=== PATIENT | male | born 1940 | race African-American/Black ===

== ENCOUNTER 2025-02-13 09:52 | Emergency (ER) | payer OTHER ==
--- NOTE | 2025-02-13 13:08 | RAD REPORT ---
EXAM:Lower Extremity Artery [facility] HISTORY: Diminished pulses right lower extremity TECHNIQUE: Sonographic evaluation right lower extremity arteries performed.Grayscale, color and spect ral analysis performed on all vessels COMPARISON: None. FINDINGS: Right common femoral, right superficial femoral and right popliteal arterial waveforms biphasic. Posterior tibial waveform is biphasic Right dorsalis pedis arterial waveform triphasic. No high-grade stenosis/occlusion Relatively mild plaque is present throughout the arteries. IMPRESSION: No significant vascular abnormality displayed
--- NOTE | 2025-02-13 13:17 | EDPHYS ---
Physician Documentation [facility] Name: Wilmer Yeboah Age: 84 yrs Sex: Male : 1940 Arrival Date: 02/13/2025 Time: 09:52 Bed [id number] Private MD: ED Physician Giorgio Corona HPI: 02/13 10:26 This 84 yrs old Black Male presents to ER via Unassigned with complaints of faint pulse ms3 right foot. 10:26 84-year-old male presents emergency department via [facility] without complaints. EMS ms3 states they were called by patient's caseworker intake for a faint pulse in his right foot. They note the pulse has been faint since his previous hospitalization. Patient was recently discharged from the hospital. Patient denies pain, fevers, chills, nausea, vomiting. 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 - Infectious Disease History:: Denies. - Social history:: Smoking status: unknown. ROS: 10:26 Constitutional: Negative for fever, and chills. Cardiovascular: Negative for chest ms3 pain, and palpitations. Respiratory: Negative for shortness of breath, cough, wheezing, and pleuritic chest pain, Abdomen/GI: Negative for abdominal pain, nausea, vomiting, diarrhea, and constipation, Skin: Negative for injury, rash, and discoloration, Exam: 10:26 Constitutional: This is a well developed, well nourished patient who is awake, alert, ms3 and in no acute distress. Cardiovascular: Regular rate and rhythm with a normal S1 and S2. No gallops, murmurs, or rubs. Normal PMI, no JVD. No pulse deficits. Respiratory: Lungs have equal breath sounds bilaterally, clear to auscultation and percussion. No rales, rhonchi or wheezes noted. No increased work of breathing, no retractions or nasal flaring. Abdomen/GI: Soft, non-tender, with normal bowel sounds. No distension or tympany. No guarding or rebound. No evidence of tenderness throughout. 10:26 Musculoskeletal/extremity: Extremities: noted in the Right foot: There is no evidence of ecchymosis, erythema, pain, DP palpable, 10:28 Skin: Right-sided sacral ulcers without surrounding erythema, granulation tissue ms3 present. Right heel ulceration. Vital Signs: 10:00 BP 120 / 53; Pulse 87; Resp 14; Temp 97.8; Pulse Ox 99% ; Weight 56.7 kg; Height 5 ft. kn 10 in. ; 11:25 BP 137 / 97; Pulse 83; Resp 18; Pulse Ox 100% ; kn 12:30 BP 114 / 59; Pulse 92; Resp 16; Pulse Ox 100% ; kn 10:00 Body Mass Index 17.94 (56.70 kg, 177.8 cm) kn MDM: 10:26 Differential diagnosis: Peripheral arterial disease vs sacral ulcer. ms3 10:28 Medical Screening Exam initiated ms3 13:27 Data reviewed: vital signs, nurses notes, and as a result, I will discharge patient. ms3 Historians other than the Patient: EMS: [facility]. Counseling: I had a detailed discussion with the patient and/or guardian regarding the historical points, exam findings, and any diagnostic results supporting the discharge/admit diagnosis, radiology results, the need for outpatient follow up, to return to the emergency department if symptoms worsen or persist or if there are any questions or concerns that arise at home. Special discussion: I discussed with the patient/guardian in detail that at this point there is no indication for admission to the hospital. It is understood, however, that if the symptoms persist or worsen the patient needs to return immediately for re-evaluation. ED course: Arterial ultrasound reveals biphasic waveform through right lower extremity. Patient is without complaints. Patient to follow-up with primary care physician in 2 to 3 days. Patient understands and agrees with plan. Questions were answered. Return precautions discussed include worsening symptoms, or any other concerns. 02/13 10:11 Order name: Chikka; Complete Time: 13:09 ms3 Administered Medications: No medications were administered Disposition Summary: 02/13/25 13:17 Discharge Ordered Notes: Location: Home ms3 Condition: Stable ms3 Diagnosis - Sacral Pressure wounds ms3 - Person with feared health complaint in whom no diagnosis is made ms3 Followup: ms3 - With: Elijah Matthews, DO - When: 2 - 3 days - Reason: Recheck today's complaints Discharge Instructions: - Discharge Summary Sheet ms3 - Preventing Pressure Injuries ms3 Forms: - Medication Reconciliation Form ms3 - Antibiotic Education ms3 - Prescription Opioid Use ms3 - Patient Portal Instructions ms3 - Leadership Thank You Letter ms3 Signatures: Dispatcher [employer] EDDC ChloeGiorgio, DO ms3 HARPREET RANDOLPH, RN RN kn Corrections: (The following items were deleted from the chart) 10:11 10:11 Lower Extremity Artery [facility][id number].RAD.BRZ ordered. [facility] 10:29 10:26 Constitutional: This is a well developed, well nourished patient who is awake, ms3 alert, and in no acute distress. Cardiovascular: Regular rate and rhythm with a normal S1 and S2. No gallops, murmurs, or rubs. Normal PMI, no JVD. No pulse deficits. Respiratory: Lungs have equal breath sounds bilaterally, clear to auscultation and percussion. No rales, rhonchi or wheezes noted. No increased work of breathing, no retractions or nasal flaring. Abdomen/GI: Soft, non-tender, with normal bowel sounds. No distension or tympany. No guarding or rebound. No evidence of tenderness throughout. Skin: Warm, dry with normal turgor. Normal color with no rashes, no lesions, and no evidence of cellulitis. ms3
--- NOTE | 2025-02-13 13:17 | ER ---
Nurse's Notes [facility] Name: Wilmer Yeboah Age: 84 yrs Sex: Male : 1940 Arrival Date: 02/13/2025 Time: 09:52 Bed [id number] Private MD: Diagnosis: Sacral Pressure wounds;Person with feared health complaint in whom no diagnosis is made Presentation: 02/13 10:00 Chief complaint: EMS states: pt arrived to room via [id number] from home, c/c: kn weak pulse to R foot. pt was recently d/c from hospital for sacral ulcer. resp even and unlabored, pt is AAOx3. Chief complaint:. Coronavirus screen: Client denies travel out of the [place] in the last 14 days. Ebola Screen: No symptoms or risks identified at this time. Initial Sepsis Screen: Does the patient meet any 2 criteria? No. Patient's initial sepsis screen is negative. Does the patient have a suspected source of infection? No. Patient's initial sepsis screen is negative. Risk Assessment: Do you want to hurt yourself or someone else? Patient reports no desire to harm self or others. Onset of symptoms is unknown. 10:00 Method Of Arrival: EMS: [facility] kn 10:00 Acuity: LINDSEY 3 kn Triage Assessment: 10:00 General: Appears in no apparent distress. General: Behavior is calm, cooperative. Pain: kn Complains of pain in buttocks. 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 - Infectious Disease History:: Denies. - Social history:: Smoking status: unknown. Screenin:34 [facility] ED Fall Risk Assessment (Adult) History of falling in the last 3 months, kn including since admission No falls in past 3 months (0 pts) Confusion or Disorientation No (0 pts) Intoxicated or Sedated No (0 pts) Impaired Gait No (0 pts) Mobility Assist Device Used Yes (1 pt) Altered Elimination Yes (1 pt) Score/Fall Risk Level 0 - 2 = Low Risk Oriented to surroundings, Maintained a safe environment. Abuse screen: Denies threats or abuse. Denies injuries from another. Nutritional screening: No deficits noted. Tuberculosis screening: No symptoms or risk factors identified. Assessment: 10:41 Reassessment: Patient appears in no apparent distress at this time. General: see triage kn note. Neuro: No deficits noted. García Agitation-Sedation Scale (RASS): 0 - Alert and Calm. Cardiovascular: No deficits noted. Respiratory: No deficits noted. 10:42 Reassessment: pt's R foot: cool to touch, +pulse/motor/sensation noted. kn 11:43 Reassessment: pt's granddaughter Tran at bedside, informed pt needs Glucerna 1.2 kn bolus 237ml \T\ 12p, 5p, 9p. pt received morning meds and bolus at home. 11:45 Reassessment: pt's granddaughter Tran left, states she will call back to check on kn him. 12:34 Reassessment: pt to [facility]. kn 13:37 Reassessment: pt's granddaughter informed of test results and that pt will be returning kn to home. Tran states her mother will be home to receive him. awaiting EMS. Vital Signs: 10:00 BP 120 / 53; Pulse 87; Resp 14; Temp 97.8; Pulse Ox 99% ; Weight 56.7 kg; Height 5 ft. kn 10 in. ; 11:25 BP 137 / 97; Pulse 83; Resp 18; Pulse Ox 100% ; kn 12:30 BP 114 / 59; Pulse 92; Resp 16; Pulse Ox 100% ; kn 10:00 Body Mass Index 17.94 (56.70 kg, 177.8 cm) kn ED Course: 09:59 Patient arrived in ED. ms3 09:59 Giorgio Corona DO is Attending Physician. ms3 10:19 HARPREET RANDOLPH, RN is Primary Nurse. kn 10:38 Triage completed. kn 12:56 [facility] In Process Unspecified. EDMS 13:13 Elijah Matthews DO is Referral Physician. ms3 13:51 called [facility] talked to Alma to transport pt back home to [place]. sp 14:34 Patient has correct armband on for positive identification. Bed in low position. Call kn light in reach. Side rails up X2. Provided Education on: use of call light. 14:34 No provider procedures requiring assistance completed. Inserted Patient did not have IV kn access during this emergency room visit. 14:35 Arm band placed on right wrist. kn Administered Medications: No medications were administered Medication: 14:35 VIS not applicable for this client. kn Outcome: 13:17 Discharge ordered by . ms3 14:34 Discharged to home via ambulance, kn 14:34 Condition: stable 14:34 Discharge instructions given to family, EMS, 14:36 Patient left the ED. kn Signatures: Dispatcher [employer] EDMS Sun Velazco Marcus, DO DO ms3 HARPREET RANDOLPH, RN RN kn
[2025-02-13 14:42] VITALS: TEMP 97.8
[2025-02-13 14:43] VITALS: O2SAT 100
[2025-02-13 14:45] VITALS: BP 114/59
== END 2025-02-13 14:36 | disposition home or self-care (01) ==
LOC: ER 09:52
DX: Z71.1 Person with feared health complaint in whom no diagnosis is made (principal); L89.150 Pressure ulcer of sacral region, unstageable
CPT/HCPCS: 93926; 99283